=== PATIENT | male | born 1970 | race Caucasian/White ===

== ENCOUNTER 2019-05-02 17:49 | Outpatient (CLI) | payer SELFPAY | END 2019-05-02 17:50 | disposition EMS.NT | LOC: EMS 17:49 | PROVIDERS: ATTEND Surgery | DX: F41.9 Anxiety disorder, unspecified (principal); R06.02 Shortness of breath ==

== ENCOUNTER 2020-10-21 14:52 | Outpatient (CLI) | payer SELFPAY | END 2020-10-21 14:53 | disposition left against medical advice (07) | LOC: EMS 14:52 | DX: R07.89 Other chest pain (principal); M79.602 Pain in left arm ==

== ENCOUNTER 2023-12-20 04:45 | Emergency (ER) | payer OTHER ==
[2023-12-20 05:01] VITALS: BP 147/91; O2SAT 100
--- NOTE | 2023-12-20 05:47 | ED Physician Documentation ---
PD HPI SKIN - Stated complaint Stated Complaint: SORE ON UPPER ABD - Chief complaint Chief Complaint: Wound - History obtained from History obtained from: Patient - Additional information Additional information: 53-year-old man presents with mild erythema 3 cm diameter to mid upper abdomen with streaking red hilario that have since resolved this morning. non pruritic. no fevers or other symptoms. he applied steroid cream without improvement. PD PAST MEDICAL HISTORY - Past Medical History Past Medical History: Yes Cardiovascular: Hypertension - Past Surgical History Past Surgical History: Yes General: Hiatal hernia repair - Present Medications Home Medications: Ambulatory Orders Medication Instructions Recorded Confirmed Hydrocortisone 1% Oint 28 gm TP BID PRN #28 gm 12/20/23 [Hydrocortisone] Losartan Potassium 25 mg PO DAILY 12/20/23 12/20/23 - Allergies Allergies/Adverse Reactions: Allergies Allergy/AdvReac Type Severity Reaction Status Date / Time No Known Drug Allergies Allergy Verified 12/20/23 04:56 - Social History Does the pt smoke?: No Smoking Status: Never smoker Does the pt drink ETOH?: Yes ETOH Use: Wine, Beer, Liquor Does the pt have substance abuse?: No - Immunizations Immunizations are current?: Yes - POLST Patient has POLST: No PD ED PE NORMAL - Vitals Vital signs reviewed: Yes - General General: Alert and oriented X 3, No acute distress, Well developed/nourished - HEENT HEENT: Atraumatic, PERRL, EOMI - Derm Derm: Normal color, Warm and dry, Other (3cm diameter circular rash to midupper abdomen, nonradiating, not raised. blanching. uniform pattern) Results - Vitals Vitals: Vital Signs - 24 hr 12/20/23 04:51 Temperature 36.7 C Heart Rate 76 Respiratory 16 Rate Blood Pressure 147/91 H O2 Saturation 100 Oxygen O2 Source Room air PD Medical Decision Making - ED course ED course: 53yM p/w flat erythematous nonpruritic rash to midabdomen that is blanching. otherwise without red flag symptoms. well appearing with benign exam. advised outpatient steroids and pcp follow up. return precautions given. Departure - Departure Disposition: 01 Home, Self Care Clinical Impression: Rash Condition: Stable Prescriptions: Hydrocortisone 1% Oint [Hydrocortisone] 28 gm TP BID PRN #28 gm PRN Reason: rash Comments: You were seen in the emergency department for rash. Prescription sent to [facility] in [place]. Please follow-up with your primary care provider and return to the emergency department if you have any new or worsening symptoms or other concerns.
== END 2023-12-20 05:50 | disposition home or self-care (01) ==
LOC: ED 04:45
DX: R21 Rash and other nonspecific skin eruption (principal); I10 Essential (primary) hypertension
CPT/HCPCS: 99282; 99283